=== PATIENT | female | born 1980 | race Caucasian/White ===

== ENCOUNTER 2018-02-26 06:14 | Day surgery (SDC) | payer OTHER ==
--- NOTE | 2018-02-25 20:09 | PDGENHP ---
History and Physical - Chief Complaint D&C, Missed AB at 12 wks EGA - History of Present Illness Kisha is a 37 yo now who I saw in the office for surgical consultation regarding D&C on 02/24/18. She is approximately 13 wks by LMP, receiving care from the [facility]. Last week she felt the abrupt cessation of fatigue and hormonal symptoms - she was seen in the office earlier this where FHR could not be auscultated by doppler and this was confirmed by bedside US. Today prior to our meeting she had another viability scan with our process engineering technician who also found no FHR, fetus measures 12w1d with some edema developing within the tissues. Kisha and her partner are both sad - they unfortunately just went through a missed AB at [facility] 6 wks EGA just this past Summer. She did not need a procedure at that time, but did require 2 doses of Cytotec to complete the process. They do have two healthy children at home, and no other miscarriages. She herself has no significant medical history, no other abdominal surgeries. She is not currently having any cramping or bleeding at all. She would be interested in discussing what workup might be reasonable for recurrent loss after she has recovered from surgery. Discussed that ASRM does support that in couples with two or more consecutive miscarriages, especially given her advanced maternal age. History Information I have personally reviewed and updated: family history, medical history, social history, surgical history Past Medical History: Recurrent loss (MAB x 2) - Surgical History Reports: no pertinent surgical hx Additional surgical history: H/o tonsils and wisdom teeth years ago, x 2 - Family History Positive for: non-pertinent - Social History Smoking Status: Never smoked Alcohol Use: None Review of Systems Review of Systems: ROS: 10pt was reviewed & negative except for what was stated in HPI & below Physical Exam Physical Exam: Constitutional: no apparent distress, appears nourished, not in pain Eyes: PERRL, anicteric sclera, EOMI Ears, Nose, Mouth, Throat: moist mucous membranes, hearing normal Respiratory: no respiratory distress Skin: normal color Neurologic: AAOx3 Psychiatric: interacting appropriately, not anxious Lab Data & Imaging Review Type & screen to be drawn STAT on arrival to unit. Assessment & Plan Assessment: Preop: Suction D&C, Missed AB at 12wks - Routine preop orders placed. PO Doxycycline 100mg pre-procedure, 200mg PO in PACU prior to discharge. - CBC and Type & Screen STAT on arrival. - US to be available at the bedside. LOUIAS
[2018-02-26] MEDS ORDERED: DOXYCYCLINE HYCLATE 100 MG CAP/TAB PO ONE ×3 (06:46→08:00)
[2018-02-26 07:18] LABS: PLATELET COUNT 259 10^3/uL (150-400)
--- NOTE | 2018-02-26 08:10 | PDHPUP ---
History & Physical Update H&P update statement: This history and physical update is based on an assessment of the patient which was completed after admission or registration (within 24 hours), but prior to the surgery/procedure. H&P update: H&P reviewed & patient examined, no change in patient's condition since H&P completed
[2018-02-26] MEDS ORDERED: NALOXONE HCL 0.4 MG/ML INJ IVP PRN (09:48)
[2018-02-26] MEDS ORDERED: HYDROmorphONE/DILAUDID 2 MG/ML INJ IVP PRN (09:48)
[2018-02-26] MEDS ORDERED: ALBUTEROL 3 ML DEYVIAL IH PRN (09:48)
[2018-02-26] MEDS ORDERED: DEXAMETHASONE 4 MG/ML VIAL IVP PRN (09:48)
[2018-02-26] MEDS ORDERED: oxyCODONE IR 5 MG TAB PO PRN (09:48)
[2018-02-26] MEDS ORDERED: fentaNYL 100 MCG/2 ML INJ IVP PRN (09:48)
[2018-02-26] MEDS ORDERED: ONDANSETRON 4 MG/2 ML VIAL IVP PRN (09:48)
--- NOTE | 2018-02-26 09:48 | PDANEPAE ---
ANE History of Present Illness D&C ANE Past Medical History - Cardiovascular History Hx Hypertension: No Hx Arrhythmias: No Hx Chest Pain: No - Pulmonary History Hx Sleep Apnea: No Sleep Apnea Screening Result - Last Documented: Negative - Chronic Pain History Chronic Pain: No ANE Review of Systems Review of Systems: - Exercise capacity Exercise capacity: >=4 METS ANE Patient History - Allergies Allergies/Adverse Reactions: No Allergies [NKDA] Allergy (Verified 02/26/18 06:46) - NPO status NPO Since - Liquids (Date): 02/26/18 NPO Since - Liquids (Time): 19:30 NPO Since - Solids (Date): 02/26/18 NPO Since - Solids (Time): 19:30 - Smoking Hx Smoking Status: Never smoked - Alcohol Use Alcohol Use: None ANE Labs/Vital Signs - Labs Result Diagrams: 02/26/18 06:50 - Vital Signs Blood Pressure: 108/67 Heart Rate: 68 Respiratory Rate: 16 O2 Sat (%): 95 Height: 160.02 cm Weight: 71.214 kg ANE Physical Exam - Airway Neck exam: FROM Mallampati Score: Class 2 Mouth exam: normal dental/mouth exam - Pulmonary Pulmonary: clear to auscultation - Cardiovascular Cardiovascular: regular rate and rhythym - ASA Status ASA Status: II ANE Anesthesia Plan Anesthesia Plan: GA w LMA
[2018-02-26] MEDS ORDERED: PROPOFOL 200 MG/20 ML VIAL ONE (10:05)
[2018-02-26] MEDS ORDERED: fentaNYL 100 MCG/2 ML INJ ONE ×2 (10:05→10:34)
[2018-02-26] MEDS ORDERED: LIDOCAINE 2% 2 ML INJ ONE ×2 (10:06)
[2018-02-26] MEDS ORDERED: DEXAMETHASONE 4 MG/ML VIAL ONE (10:26)
[2018-02-26] MEDS ORDERED: ONDANSETRON 4 MG/2 ML VIAL ONE (10:26)
[2018-02-26] MEDS ORDERED: MISOPROSTOL 200 MCG TAB ONE (10:45)
[2018-02-26] MEDS ORDERED: KETOROLAC 30 MG/1 ML SDV ONE (10:55)
[2018-02-26] MEDS ORDERED: IBUPROFEN 600 MG TAB PO PRN (11:07)
--- NOTE | 2018-02-26 11:07 | POSTANESTH ---
Post Anesthetic Evaluation Cardiovascular Status: Normal, Stable Respiratory Status: Normal, Stable Level of Consciousness/Mental Status: Can Participate in Eval, Alert and Oriented Pain Control: Adequate, Prn Tx Ordered Nausea/Vomiting Control: Adequate, Prn Tx Ordered Complications Possibly Related to Anesthesia: None Noted
--- NOTE | 2018-02-26 11:11 | POSTOPPROG ---
Post Op Note Date of Operation: 02/26/18 Surgeon: Lyn Manley Anesthesiologist: Dr Tod Jones Anesthesia: GET(General Endotracheal) (LMA) Pre-op Diagnosis: missed @ 12 weeks Post-op Diagnosis: same Procedure: ultrasound guided suction D anc C Inf/Abcess present in the surg proc area at time of surgery?: No Depth: Organ Space EBL: 100-500 (200) Total fluids administered: 1200 Complications: none Specimen(s): products of conception
--- NOTE | 2018-02-26 12:31 | GOP ---
DATE OF OPERATION: 02/26/2018 SURGEON: Lyn Manley MD ANESTHESIA: General anesthesia with an LMA. ANESTHESIOLOGIST: Tod Jones DO. PREOPERATIVE DIAGNOSIS: Missed at 13 weeks by date, 12 weeks by size. pos POSTOPERATIVE DIAGNOSIS: Missed at 13 weeks by date, 12 weeks by size. PROCEDURE PERFORMED: Ultrasound-guided suction dilation and curettage. FINDINGS: SPECIMENS: Pathologic specimen will be products of conception. ESTIMATED BLOOD LOSS: For the procedure was approximately 200 cc. INDICATIONS: Kisha is a 37-year-old, 4, para 2-0-1-2, who was 13 weeks by last menstrual p eriod, receiving her care at the [facility]. Last week she was seen in the office there wh ere they were not able to auscultate heart tones and the demise was confirmed by bedside ultrasound. She was seen at [facility] on 02/24/2018 and had a viability ultrasound, which again confirmed no heart tones. The fetus was measuring 12 weeks 1 day with edema along the t issues. The patient was given condolences, given treatment options of medical management versus expe ctant management versus surgical management. The patient wished to have a suction dilation and curet tage as soon as possible. The patient was consented for the procedure. She understood the risks and benefits the risks including bleeding, infection, damage to the uterus including possible risk of pe rforation, damage to other organs if perforation was to occur, incomplete removal of all the tissue w ith need for repeat procedure or spontaneous expulsion at a later time and compromise of future ferti lity. She understood these risks and benefits agreed to proceed. Please see dictated H and P for fu ll details. DESCRIPTION OF PROCEDURE: The patient was taken to the operating room where she was placed under gen eral anesthesia and an LMA was placed without difficulty. She was prepped and draped in the dorsal l ithotomy position. After a WHO time-out was performed an exam under anesthesia was performed and her uterus was approximately 12 week size. The cervix was fingertip and soft. Uterus was anteverted an d anteflexed. There was no active bleeding. An open-sided speculum was placed in the vagina, and a Jovel tenaculum was used to grasp the anterior lip of the cervix. The uterus was gently sounded to 12 cm. The cervix was then progressively dilated with Burleson dilators to a #12. A #12 suction curett e was then gently advanced from the cervix to the fundus and with transvaginal ultrasound guidance armstrong ction was applied and there was tissue obtained with several passages of the suction device. The tis kathleen was also removed directly with a sponge stick when it was visible at the cervical os. Sharp cure ttage was then performed in a clockwise fashion until a gritty texture could be palpated throughout t he entire endometrium. Suction was continued until the bleeding and tissue was seen to be under cont rol. The tenaculum was removed and sterile speculum was removed. Transvaginal ultrasound was perfor med and there was noted to be a small area of possible clot versus possible retained products at the fundus, so I decided to replace the speculum, replace the tenaculum and perform sharp curettage again . Minimal tissue was noted. Some blood and final passage of the suction revealed no further tissue. No bleeding. Bleeding was much better under control. Speculum and tenaculum were removed. I place d 400 of Cytotec rectally to improve uterine tone. The patient tolerated the procedure well. Sponge , lap, needle, and instrument counts were correct x2. Patient went to the recovery room in good cond ition. IV FLUID REPLACEMENT: 1200 cc. URINE OUTPUT: Not measured. /[id number]/MODL
[2018-02-26 12:47] VITALS: BP 101/59
== END 2018-02-26 13:16 | disposition home or self-care (01) ==
LOC: FSGY 06:14 → FOBOP 13:16
PROVIDERS: ATTEND Obstetrics & Gynecology
PROC: BU46YZZ Ultrasonography of Uterus using Other Contrast (ICD-10-PCS; principal; 2018-02-26)
PROC: 10D17ZZ Extraction of Products of Conception, Retained, Via Natural or Artificial Opening (ICD-10-PCS; principal; 2018-02-26)
DX: O02.1 Missed abortion (principal); O09.521 Supervision of elderly multigravida, first trimester; O09.291 Supervision of pregnancy with other poor reproductive or obstetric history, first trimester; Z3A.13 13 weeks gestation of pregnancy
CPT/HCPCS: J1100; J1885; J2405; J2704; J3010; J7613